=== PATIENT | male | born 1940 | race Caucasian/White ===

== ENCOUNTER 2020-12-03 10:51 | Outpatient (REF) | payer MEDICARE, SELFPAY ==
[2020-12-03 13:32] LABS: T4 Thyroxine 6.3 ug/dL (4.5-12.0)
[2020-12-03 13:43] LABS: Erythrocyte Sedimentation Rate 40 MM/HR (0-15)
[2020-12-03 13:57] LABS: Vitamin B12 > 2000 pg/mL (200-900)
[2020-12-04 08:27] LABS: Lyme Abs Screen <0.90 index
[2020-12-17 05:32] LABS: Aldolase 6.6 U/L (<=8.1)
== END 2020-12-03 10:52 | disposition home or self-care (01) ==
LOC: HO.LAB 10:51
PROVIDERS: PCP Internal Medicine; Visit Provider Psychiatry & Neurology Neurology
DX: G72.9 Myopathy, unspecified (principal); G62.9 Polyneuropathy, unspecified
CPT/HCPCS: 36415; 82085; 82550; 82607; 82746; 84436; 84443; 85652; 86617; 86618